=== PATIENT | female | born 1975 | race Caucasian/White ===

== ENCOUNTER 2020-09-22 14:55 | Emergency (ER) | payer OTHER ==
[~2020-09-22 14:55] MED LIST: CEFUROXIME500 MG PO; IBU800 MG PO; LODINE CAP 300300 MG PO; PENVEE K 250 M250 MG PO; ZOFRAN ODT 4 MG4 MG PO
[2020-09-22] MEDS ORDERED: AMOXICILLIN500 MG PO (15:33)
== END 2020-09-22 16:10 | disposition home or self-care (01) ==
LOC: ER1 14:55
DX: K08.89 Other specified disorders of teeth and supporting structures (principal); F17.200 Nicotine dependence, unspecified, uncomplicated
CPT/HCPCS: 99282

== ENCOUNTER 2021-03-24 14:53 | Emergency (ER) | payer OTHER ==
[~2021-03-24 14:53] MED LIST changes: +AMOXICILLIN500 MG PO
[2021-03-24] MEDS ORDERED: AMOXICILLIN875 MG PO (16:10)
== END 2021-03-24 16:28 | disposition home or self-care (01) ==
LOC: ER1 14:53
DX: J02.0 Streptococcal pharyngitis (principal); Z20.822 Contact with and (suspected) exposure to COVID-19; F17.200 Nicotine dependence, unspecified, uncomplicated
CPT/HCPCS: 0240U; 87081; 87880; 99283

== ENCOUNTER 2021-06-14 03:43 | Emergency (ER) | payer OTHER ==
[~2021-06-14 03:43] MED LIST changes: +AMOXICILLIN875 MG PO
[2021-06-14 04:49] LABS: HEMOGLOBIN 10.3 gm/dl (12.3-15.3); RED BLOOD COUNT 5.65 M/UL (4.00-5.10); WHITE BLOOD COUNT 13.6 K/UL (4.5-11.0)
[2021-06-14 05:04] LABS: BUN/CREATININE RATIO 11 (0-10)
[2021-06-15] MEDS ORDERED: HURRICAINE57 G1 MM (10:37)
[2021-06-15] MEDS ORDERED: IBU600 MG PO (11:08)
== END 2021-06-14 06:37 | disposition home or self-care (01) ==
LOC: ER1 03:43
PROVIDERS: Family Medicine
DX: J06.9 Acute upper respiratory infection, unspecified (principal); R06.00 Dyspnea, unspecified; E87.6 Hypokalemia; Z20.822 Contact with and (suspected) exposure to COVID-19; F17.200 Nicotine dependence, unspecified, uncomplicated
CPT/HCPCS: 0240U; 71045; 80048; 82550; 82553; 83874; 84484; 85025; 87081; 87880; 99284

== ENCOUNTER 2021-06-15 07:41 | Emergency (ER) | payer OTHER ==
[2021-06-15 08:12] LABS: HEMOGLOBIN 9.7 gm/dl (12.3-15.3); RED BLOOD COUNT 5.29 M/UL (4.00-5.10); WHITE BLOOD COUNT 14.4 K/UL (4.5-11.0)
[2021-06-15 08:30] LABS: BUN/CREATININE RATIO 9 (0-10)
[2021-06-15] MEDS ORDERED: HURRICAINE57 G1 MM (10:37)
[2021-06-15] MEDS ORDERED: IBU600 MG PO (11:08)
== END 2021-06-15 12:00 | disposition home or self-care (01) ==
LOC: ER1 07:41
PROVIDERS: Student in an Organized Health Care Education/Training Program
DX: J06.9 Acute upper respiratory infection, unspecified (principal); F17.210 Nicotine dependence, cigarettes, uncomplicated; Z20.822 Contact with and (suspected) exposure to COVID-19
CPT/HCPCS: 0240U; 71045; 80048; 82550; 82553; 84484; 85025; 85379; 87081; 87880; 93005; 96374; 96375; 99283; J1100; J1885

== ENCOUNTER 2021-07-21 15:23 | Emergency (ER) | payer OTHER ==
[~2021-07-21 15:23] MED LIST changes: +HURRICAINE57 G1 MM; +IBU600 MG PO
== END 2021-07-21 19:48 | disposition home or self-care (01) ==
LOC: ER1 15:23
DX: S01.81XA Laceration without foreign body of other part of head, initial encounter (principal); Y92.009 Unspecified place in unspecified non-institutional (private) residence as the place of occurrence of the external cause; Y09 Assault by unspecified means
CPT/HCPCS: 70450; 72125; 96372; 99284; J1885